=== PATIENT | male | born 1950 | race Caucasian/White ===

== ENCOUNTER 2016-12-27 06:54 | Day surgery (SDC) | payer OTHER ==
[2016-12-26 11:58] LABS: MANUAL DIFF NEEDED? NO
[2016-12-26 12:04] LABS: BASO% 0.7 % (0.0-0.8); EOS% 1.6 % (0.0-10.0); HEMOGLOBIN 13.9 g/dL (14.0-18.0); LYMPH# 1.27 X1000 (1.2-3.4); LYMPH% 20.7 % (20.5-51.1); MCH 30.5 PG (27-31); MCHC 33.9 g/dL (33-37); MCV 90.1 FL (81-99); MONO# 0.45 X1000 (0.11-0.59); MONO% 7.3 % (1.7-9.3); NEUT% 69.7 % (42.2-75.2); PLT 169 X1000 (130-400); RBC 4.55 XMIL (4.7-6.1)
[2016-12-26 12:12] LABS: INR 1.01; PROTIME 10.7 Seconds (9.2-11.7); PTT 25.3 Seconds (22.0-36.0)
[2016-12-26 12:33] LABS: CALCIUM 9.1 mg/dL (8.8-10.2); POTASSIUM 4.5 mmol/L (3.5-5.1); TOTAL BILIRUBIN 0.42 mg/dL (0.20-1.00); TOTAL PROTEIN 6.9 g/dL (6.3-8.3)
[2016-12-27] MEDS ORDERED: NS 1,000 ML ONE ×2 (07:14→10:33)
--- NOTE | 2016-12-27 07:39 | EKG Report ---
Test Performed on : 12/27/2016 07:09:09 AM Test Reason : per MD order Blood Pressure : / mmHG Vent. Rate : 058 BPM Atrial Rate : 058 BPM P-R Int : 198 ms QRS Dur : 186 ms QT Int : 520 ms P-R-T Axes : 053 -57 145 degrees QTc Int : 510 ms Sinus bradycardia. with sinus arrhythmia. Left bundle branch block Abnormal ECG No previous ECGs available Confirmed by Mani MARTINEZ, Dennis Díaz ([id number]) on 12/27/2016 5:24:02 PM
[2016-12-27] MEDS ORDERED: HEPARIN 1000 UNITS/NS 1,000 ML ONE (07:56)
[2016-12-27] MEDS ORDERED: DEMEROL ONE (09:27)
[2016-12-27] MEDS ORDERED: VERSED ONE (09:27)
--- NOTE | 2016-12-27 11:02 | CARDIAC CATH REPORT ---
DATE: 12/27/2016 PROCEDURES PERFORMED: 1. Left heart catheterization. 2. Selective coronary angiogram. 3. Left ventriculogram. HISTORY OF PRESENT ILLNESS: This is a 66-year-old male who presented for followup on severe hypertension, hyperlipidemia and abnormal EKG. Runs of ventricular tachycardia noted on Holter monitor. We did a coronary calcium score that showed markedly elevated calcium score of greater than 2000 units. Because of a low ejection fraction on previous nuclear scan, we recommended a left heart catheterization to confirm or rule out the presence of severe coronary artery disease. The benefits, risks and complications of the procedure were explained to the patient and family in detail. They understood and requested to proceed. DESCRIPTION OF PROCEDURE: The patient came into the [facility] in the fasting state. The right antecubital fossa was prepped and draped in sterile fashion and anesthetized with lidocaine 1%. The patient received 1 mg of Versed and 25 mg of Demerol for sedation, 2 doses. Then the right brachial artery was cannulated with a 5-Spanish sheath. We used a [employer] type 2 catheter to selectively opacify first the right coronary artery and then the left coronary artery. Thereafter we negotiated the aortic valve. Left ventricular pressure was measured. Left ventriculogram was performed in the 60 degree [place] projection and 30 degree [place] projection by hand injection. At the conclusion of the procedure, the sheath was flushed. The patient received intraarterial nitroglycerin 2 doses, first at the beginning of the case 200 mcg and then at the end of the case 100 mcg. The sheath was pulled, and hemostasis was accomplished by hand compression. The patient tolerated the procedure well without any obvious complications. SUMMARY OF HEMODYNAMIC FINDINGS: Central aortic pressure is 99/60. Left ventricular pressure 98/26. Post LV gram was 99/24. Final central aortic pressure was 100/50. This indicates left ventricular diastolic dysfunction. SUMMARY OF ANGIOGRAPHIC FINDINGS: 1. Left main coronary artery: This vessel is angiographically normal. It divides into LAD and circumflex. 2. Left anterior descending coronary artery: This vessel gives rise to a large diagonal branch early on. This branch is about 3.5 mm in caliber. Proximally it gives rise to a septal branch, and then this diagonal branch gives rise to secondary diagonal terminal vessels. This diagonal is noted to have an ostial 30% to 40% nonsignificant plaque. Thereafter, the LAD proper continues down the anterior interventricular groove and immediately in its early third, this vessel shows a discrete 75% to 80% stenosis. Thereafter, the LAD in its mid and distal section is tortuous, maintains a caliber of at least 2.5 mm and wraps around the apex of the left ventricle. The amount of myocardium subtended by this LAD is really substantial. 3. Circumflex coronary artery: The circumflex coronary artery is a nondominant vessel. Proximally it gives rise to the sinus harinder branch. It also gives rise to a very large lateral vessel. This lateral vessel has almost a ramus like distribution. It is at least 3.5 mm in caliber and is free of any obstruction. The main circumflex thereafter continues down the A-V groove and after giving rise to a small couple of lateral branches, it terminates as a very good size posterolateral branch which is free of any obstruction. 4. Right coronary artery: The right coronary artery is a good size dominant vessel arising from the right coronary sinus of Valsalva. Proximally it has some minor irregularities. It gives rise to 2 marginal vessels which are free of any obstruction. Distally, the right coronary artery gives rise essentially to a good size posterior descending branch and a tiny A-V branch. The right coronary artery is free of any critical obstruction. LEFT VENTRICULOGRAM: Left ventriculogram in the 30 degree [place] projection and 60 degree [place] projection reveals enlargement of the left ventricular chamber with mild to moderate impairment of the systolic function. Ejection fraction is estimated at 40%. The anteroapical segment appears to be hypokinetic. No mitral regurgitation was noted. CONCLUSIONS: 1. Severe single vessel coronary artery disease. There is a severe stenosis of the LAD after giving rise to a major diagonal branch. The diagonal branch gives rise to a septal concrete bucket loader vessel proximally. The diagonal has a 40% stenosis. There are minor irregularities in the right coronary artery. 2. Enlarged left ventricle with mild to moderately impaired function. Ejection fraction is estimated at 40% with anteroapical hypokinesis. 3. No mitral regurgitation. No aortic stenosis. 4. Elevated LVEDP consistent with diastolic dysfunction. RECOMMENDATIONS: We will treat the patient medically for the time being. We will consider a second opinion from the [facility] team regarding the possibility of performing intervention on him. Further advice will be forthcoming. Thank you for the opportunity to participate in his evaluation. [facility]
--- NOTE | 2016-12-27 15:38 | EKG Report ---
Test Performed on : 12/27/2016 11:27:41 AM Test Reason : post Left Heart Cath Blood Pressure : / mmHG Vent. Rate : 042 BPM Atrial Rate : 042 BPM P-R Int : 174 ms QRS Dur : 174 ms QT Int : 578 ms P-R-T Axes : 051 -56 163 degrees QTc Int : 482 ms Marked sinus bradycardia. Left axis deviation Left bundle branch block Abnormal ECG When compared with ECG of 27-DEC-2016 07:09, (Unconfirmed) No significant change was found Confirmed by Mani MARTINEZ, Dennis Díaz ([id number]) on 12/27/2016 5:24:46 PM
[2016-12-27 15:52] VITALS: BP 121/63
== END 2016-12-27 16:10 | disposition home or self-care (01) ==
LOC: OPS 06:54
PROVIDERS: ATTEND Internal Medicine Cardiovascular Disease
DX: I25.10 Atherosclerotic heart disease of native coronary artery without angina pectoris (principal); I49.3 Ventricular premature depolarization; I12.9 Hypertensive chronic kidney disease with stage 1 through stage 4 chronic kidney disease, or unspecified chronic kidney disease; N18.9 Chronic kidney disease, unspecified; E78.5 Hyperlipidemia, unspecified; J44.9 Chronic obstructive pulmonary disease, unspecified; K21.9 Gastro-esophageal reflux disease without esophagitis; R00.1 Bradycardia, unspecified; R94.31 Abnormal electrocardiogram [ECG] [EKG]; R94.30 Abnormal result of cardiovascular function study, unspecified; Z79.82 Long term (current) use of aspirin; Z79.899 Other long term (current) drug therapy; F17.210 Nicotine dependence, cigarettes, uncomplicated; Z82.49 Family history of ischemic heart disease and other diseases of the circulatory system
CPT/HCPCS: 80053; 85025; 85610; 85730; 93005; 93010; 93458; J1644; J2175; J2250; J7030; Q9967